=== PATIENT | male | born 1940 ===

== ENCOUNTER 2017-07-13 07:50 | Day surgery (SDC) | payer MEDICARE ==
[2017-07-13] MEDS ORDERED: Lactated Ringer's 500 ML IV ONE (08:26)
[2017-07-13] MEDS ORDERED: Propofol 10 mg/ml Inj (20 ML) ONE (09:33)
[2017-07-13] MEDS ORDERED: Lidocaine PF 2% (5 ml) Inj (For Cardiac Arrhy) IV ONE (09:33)
[2017-07-13 10:03] VITALS: TEMP 97
[2017-07-13 10:15] VITALS: BP 114/75; PULSE 77; RESP 14; O2SAT 98
== END 2017-07-13 10:25 | disposition home or self-care (01) ==
LOC: H.ENDO 07:50
PROVIDERS: ATTEND Internal Medicine Gastroenterology
DX: Z12.11 Encounter for screening for malignant neoplasm of colon (principal); E11.9 Type 2 diabetes mellitus without complications; E78.5 Hyperlipidemia, unspecified; I10 Essential (primary) hypertension; D12.2 Benign neoplasm of ascending colon; K64.8 Other hemorrhoids; K57.30 Diverticulosis of large intestine without perforation or abscess without bleeding
CPT/HCPCS: 45380; 82948; 88305; J2704; J7120